=== PATIENT | female | born 1995 | race Two or more races ===

== ENCOUNTER 2017-01-28 12:04 | Emergency (ER) | payer OTHER ==
[~2017-01-28] VITALS: Ht 162.6 cm; Wt 50.1 kg
[2017-01-28] MEDS ORDERED: IBUP-1022 PO (12:26)
[2017-01-28] MEDS ORDERED: ALBU83IN INH (12:27)
[2017-01-28] MEDS ORDERED: KETOROLAC 60 MG/2 ML VIAL (J1885) IM ONE (12:45)
[2017-01-28] MEDS ORDERED: KETOROLAC 30 MG/ML VIAL (J1885) IV ONE (13:00)
[2017-01-28] MEDS ORDERED: NS 1,000 ML IV ONE (13:00)
[2017-01-28 13:12] LABS: BASO % 0.2 % (0.0-1.0); EOS # 0.1 K/mm3 (0.0-0.50); EOS % 0.8 % (0.0-3.0); LARGE UNSTAINED CELL # 0.1 K/mm3 (0.0-0.4); LARGE UNSTAINED CELL % 0.7 % (0.0-4.0); LYMPH # 1.5 K/mm3 (1.5-6.5); LYMPH % 10.3 % (24.0-44.0); MEAN CORPUSCULAR HEMOGLOBIN 29.5 pg (27.0-33.0); MEAN CORPUSCULAR HGB CONC 33.8 g/dl (32.0-36.5); MEAN CORPUSCULAR VOLUME 87.1 fl (80.0-96.0); MONO # 0.7 K/mm3 (0.0-0.8); MONO % 5.2 % (0.0-5.0); NEUTROPHILS # 11.5 K/mm3 (1.8-7.7); NEUTROPHILS % 82.9 % (36.0-66.0); PLATELET COUNT, AUTOMATED 309 k/mm3 (150-450); RED CELL DISTRIBUTION WIDTH 12.8 % (11.5-14.5); WHITE BLOOD COUNT 13.9 K/mm3 (4.0-10.0)
[2017-01-28 13:35] LABS: ALBUMIN 3.2 GM/DL (3.2-5.2); ALBUMIN/GLOBULIN RATIO 1.07 (1.00-1.93); ALKALINE PHOSPHATASE 64 U/L (45-117); ALT/SGPT 12 U/L (12-78); ANION GAP 8 MEQ/L (8-16); AST/SGOT 11 U/L (15-37); BILIRUBIN,DIRECT 0.2 MG/DL (0.0-0.2); BILIRUBIN,TOTAL 0.7 MG/DL (0.2-1.0); BLOOD UREA NITROGEN 9 MG/DL (7-18); CALCIUM LEVEL 6.8 MG/DL (8.5-10.1); CARBON DIOXIDE LEVEL 22 MEQ/L (21-32); CHLORIDE LEVEL 111 MEQ/L (98-107); CREATININE FOR GFR 0.68 MG/DL (0.55-1.02); GLOMERULAR FILTRATION RATE > 60.0 (>60); GLUCOSE, FASTING 74 MG/DL (70-105); POTASSIUM SERUM 3.1 MEQ/L (3.5-5.1); SODIUM LEVEL 141 MEQ/L (136-145); TOTAL PROTEIN 6.2 GM/DL (6.4-8.2)
--- NOTE | 2017-01-28 13:39 | REP ---
Clinical: Right flank pain and dysuria Technique: Munoz scale ultrasound using curved array transducer. Findings: The kidneys are normal in contour size and echogenicity and reniform shape without hydronephrosis, nephrolithiasis, cystic or renal mass lesion. Right kidney measures 10.3 x 4.2 x 4.2 cm . Left kidney measures 10.1 x 3.9 x 4.7 cm. Bladder is incompletely distended and grossly normal by current evaluation. Impression: Normal renal ultrasound Signed by Ulises Quinones MD 01/28/2017 01:31 P
[2017-01-28] MEDS ORDERED: cefTRIAXone SOD 1 GM in D5W MINI-BAG PLUS 50 ML IV ONE (13:45)
[2017-01-28] MEDS ORDERED: POTASSIUM CHL PWD 20 MEQ PACKET PO ONE (13:45)
[2017-01-28] MEDS ORDERED: IBUP80TA PO (14:39)
[2017-01-28] MEDS ORDERED: CIPR-249 PO (14:39)
[2017-01-28] MEDS ORDERED: CIPROFLOXACIN 500 MG TAB PO ONE (14:45)
[2017-01-28 14:47] VITALS: BP 117/66
== END 2017-01-28 14:52 | disposition home or self-care (01) ==
LOC: M ED 12:04
DX: N10 Acute pyelonephritis (principal); N39.0 Urinary tract infection, site not specified
CPT/HCPCS: 36415; 76775; 80048; 80076; 81001; 81025; 83690; 85025; 87040; 87088; 87186; 96365; 96372; 96375; 99284; J0696; J1885

== ENCOUNTER → 2017-02-26 | Outpatient (REF) | payer OTHER ==
[~2017-02-26] MED LIST: ALBU83IN INH; CIPR-249 PO; IBUP-1022 PO; IBUP80TA PO
== END ==
LOC: M SFHCLERA 10:41
PROVIDERS: ATTEND Nurse Practitioner Family
DX: R30.0 Dysuria (principal)

== ENCOUNTER → 2017-02-27 | Outpatient (REF) | payer OTHER | LOC: M SFHCLERA 16:09 | PROVIDERS: ATTEND Nurse Practitioner Family | DX: R30.0 Dysuria (principal) ==

== ENCOUNTER → 2017-05-10 | Outpatient (REF) | payer OTHER | LOC: M SFHCLERA 16:54 | PROVIDERS: ATTEND Physician Assistant | DX: R21 Rash and other nonspecific skin eruption (principal); N39.0 Urinary tract infection, site not specified ==

== ENCOUNTER 2017-06-08 13:50 | Emergency (ER) | payer OTHER ==
[~2017-06-08] VITALS: Ht 162.6 cm; Wt 52.7 kg
[2017-06-08 15:49] LABS: BASO % 0.3 % (0.0-1.0); EOS # 0.1 10^3/uL (0.0-0.50); EOS % 2.2 % (0.0-3.0); IMMATURE GRANULOCYTE % 0.3 % (0-0); LYMPH # 2.5 10^3/uL (1.5-6.5); LYMPH % 38.5 % (24.0-44.0); MEAN CORPUSCULAR HEMOGLOBIN 28.7 pg (27.0-33.0); MONO # 0.5 10^3/uL (0.0-0.8); MONO % 7.4 % (0.0-5.0); NEUTROPHILS # 3.3 10^3/uL (1.8-7.7); NEUTROPHILS % 51.3 % (36.0-66.0); PLATELET COUNT, AUTOMATED 342 10^3/uL (150-450); RED CELL DISTRIBUTION WIDTH 12.9 % (11.5-14.5); WHITE BLOOD COUNT 6.4 10^3/uL (4.0-10.0)
[2017-06-08 15:51] LABS: CONTROL LINE UCG INT CTR LINE PRESENT
[2017-06-08 15:58] LABS: ANION GAP 8 MEQ/L (8-16); BLOOD UREA NITROGEN 16 MG/DL (7-18); CALCIUM LEVEL 8.9 MG/DL (8.5-10.1); CARBON DIOXIDE LEVEL 26 MEQ/L (21-32); CHLORIDE LEVEL 103 MEQ/L (98-107); CREATININE FOR GFR 0.78 MG/DL (0.55-1.02); GLOMERULAR FILTRATION RATE > 60.0 (>60); GLUCOSE, FASTING 82 MG/DL (70-105); POTASSIUM SERUM 3.8 MEQ/L (3.5-5.1); SODIUM LEVEL 137 MEQ/L (136-145)
--- NOTE | 2017-06-08 16:38 | REP ---
PELVIC AND ENDOVAGINAL PROBE ULTRASOUND: 06/08/2017. Clinical history: Left lower quadrant pain. Possible ovarian cyst. Findings: There are no prior pertinent studies. Bladder is empty for the transabdominal images. Uterus anteverted. It measures 7.7 x 3 x 4.5 cm, better seen on the endovaginal probe. Endometrial echogenic stripe has a thickness of 3.1 mm on the EV probe exam. No fluid in the endometrial cavity or endocervical canal. No uterine mass or contour abnormality. I see no free fluid in the cul-de-sac. Right ovary is 2.9 x 2.1 x 1.8 cm. It shows Doppler resistive index 0.57, no torsion. Dominant follicle is about 8 mm. The left ovary 3 x 3.5 x 2.1 cm. It shows Doppler tracing with resistive index of 0.54. No torsion. Dominant follicle 1.5 x 1.3 cm with a few other smaller subcentimeter follicles. No fluid adjacent to either ovary. Impression: 1. Dominant follicle left ovary 1.5 x 1.3 cm without evidence of torsion, solid mass or free fluid. (Cyst defined at 2.5 cm). 2. Right ovary normal, without torsion. 3. Uterus and endometrial stripe unremarkable. No fluid in the cul-de-sac. Signed by James Mccarthy MD 06/08/2017 05:52 P
[2017-06-08 17:03] VITALS: BP 111/65
== END 2017-06-08 17:05 | disposition home or self-care (01) ==
LOC: M ED 13:50
DX: N83.02 Follicular cyst of left ovary (principal); J45.909 Unspecified asthma, uncomplicated; Z88.2 Allergy status to sulfonamides

== ENCOUNTER → 2017-09-19 | Outpatient (CLI) | payer OTHER ==
[~2017-09-19] MED LIST changes: -ALBU83IN INH; -CIPR-249 PO; -IBUP-1022 PO; -IBUP80TA PO; +PROHANCE 279.3MG/ML 5ML VIAL (A9576) As Ordered
== END ==
LOC: M RAD 12:25
DX: N97.9 Female infertility, unspecified (principal); E28.2 Polycystic ovarian syndrome
CPT/HCPCS: A9576

== ENCOUNTER → 2017-11-29 | Outpatient (CLI) | payer OTHER ==
[~2017-11-29] MED LIST changes: +ISOVUE-370 76% 100ML VIAL (Q9967) As Ordered; -PROHANCE 279.3MG/ML 5ML VIAL (A9576) As Ordered
== END ==
LOC: M RADPRO 10:58
DX: N97.9 Female infertility, unspecified (principal)
CPT/HCPCS: 58340

== ENCOUNTER 2017-12-17 22:54 | Emergency (ER) | payer OTHER ==
[2017-12-17 23:25] LABS: KETONE, URINE AUTO RFX NEGATIVE (NEGATIVE); NITRITE, URINE AUTO RFX NEGATIVE (NEGATIVE); RBC, URINE AUTO RFX 3 /HPF (0-3); SPECIFIC GRAVITY UR AUTO RFX 1.019 (1.002-1.035); SQUAM EPITHELIAL CELL UR AURFX 3 /HPF (0-6); WBC, URINE AUTO RFX 9 /HPF (0-3)
[2017-12-17 23:26] LABS: CONTROL LINE UCG INT CTR LINE PRESENT; LEUKOCYTE ESTERASE UR AUTO RFX TRACE (NEGATIVE); URINE PREG TEST POSITIVE (NEGATIVE)
[2017-12-18] MEDS: NITROFURANTOIN (MACROBID) 100 MG CAP PO (01:03)
== END 2017-12-18 01:06 | disposition home or self-care (01) ==
LOC: M ED 22:54
DX: N30.00 Acute cystitis without hematuria (principal); M54.5 Low back pain; Z87.42 Personal history of other diseases of the female genital tract; Z88.2 Allergy status to sulfonamides
CPT/HCPCS: 84703

== ENCOUNTER → 2018-01-01 | Outpatient (REF) | payer OTHER ==
[2018-01-01 13:50] LABS: APPEARANCE, URINE CLEAR (CLEAR); BACTERIA, URINE AUTO NEGATIVE (NEGATIVE); BILIRUBIN, URINE AUTO NEGATIVE (NEGATIVE); BLOOD, URINE BLOOD NEGATIVE (NEGATIVE); COLOR, URINE YELLOW (YELLOW); GLUCOSE, URINE (UA) AUTO NEGATIVE (NEGATIVE); KETONE, URINE AUTO NEGATIVE (NEGATIVE); LEUKOCYTE ESTERASE, URINE AUTO TRACE (NEGATIVE); NITRITE, URINE AUTO NEGATIVE (NEGATIVE); PROTEIN, URINE AUTO NEGATIVE (NEGATIVE); RBC, URINE AUTO 0 /HPF (0-3); SPECIFIC GRAVITY URINE AUTO 1.024 (1.002-1.035); SQUAMOUS EPITHELIAL CELL UR AU 1 /HPF (0-6); UROBILINOGEN, URINE AUTO 0.2 mg/dL (0.0-2.0); WBC, URINE AUTO 1 /HPF (0-3)
== END ==
LOC: M SMT 13:21
DX: N39.0 Urinary tract infection, site not specified (principal)

== ENCOUNTER 2018-03-29 19:20 | Emergency (ER) | payer OTHER | END 2018-03-29 20:30 | disposition home or self-care (01) | LOC: M ED 19:20 | DX: J45.901 Unspecified asthma with (acute) exacerbation (principal); Z88.1 Allergy status to other antibiotic agents; Z88.2 Allergy status to sulfonamides | CPT/HCPCS: 99284 ==

== ENCOUNTER 2018-06-01 17:03 | Outpatient (CLI) | payer OTHER ==
[2018-06-01] MEDS: LR 1,000 ML IV ×2 (17:44→18:46)
[2018-06-01 18:28] LABS: HEMATOCRIT 35.7 % (36.0-47.0); MEAN CORPUSCULAR HEMOGLOBIN 29.4 pg (27.0-33.0); MEAN CORPUSCULAR HGB CONC 33.6 g/dl (32.0-36.5); MEAN CORPUSCULAR VOLUME 87.5 fl (80.0-96.0); PLATELET COUNT, AUTOMATED 269 10^3/uL (150-450); RED BLOOD COUNT 4.08 10^6/uL (4.00-5.40); RED CELL DISTRIBUTION WIDTH 12.9 % (11.5-14.5); WHITE BLOOD COUNT 11.9 10^3/uL (4.0-10.0)
[2018-06-01] MEDS: AMPICILLIN SOD/SULBACTAM SOD 3 GM in D5W MINI-BAG PLUS 100 ML IV (18:46)
== END 2018-06-01 20:35 | disposition home or self-care (01) ==
LOC: M LDO 17:03
DX: O26.893 Other specified pregnancy related conditions, third trimester (principal); M54.5 Low back pain; O99.513 Diseases of the respiratory system complicating pregnancy, third trimester; J45.909 Unspecified asthma, uncomplicated; O99.89 Other specified diseases and conditions complicating pregnancy, childbirth and the puerperium; Z87.440 Personal history of urinary (tract) infections; Z88.1 Allergy status to other antibiotic agents; Z3A.30 30 weeks gestation of pregnancy
CPT/HCPCS: 59025

== ENCOUNTER → 2018-06-07 | Outpatient (CLI) | payer OTHER ==
[2018-06-12 08:15] LABS: Zika Virus NAA Urine Negative (Negative)
== END ==
LOC: M LAB 13:16
DX: Z34.03 Encounter for supervision of normal first pregnancy, third trimester (principal)
CPT/HCPCS: 36415

== ENCOUNTER 2018-06-12 17:46 | Inpatient (IN) | payer OTHER ==
[2018-06-12] MEDS: LR 1,000 ML IV (18:30)
[2018-06-12 18:56] LABS: HEMATOCRIT 34.9 % (36.0-47.0); HEMOGLOBIN 11.7 g/dl (12.0-15.5); MEAN CORPUSCULAR HEMOGLOBIN 29.3 pg (27.0-33.0); MEAN CORPUSCULAR HGB CONC 33.5 g/dl (32.0-36.5); MEAN CORPUSCULAR VOLUME 87.3 fl (80.0-96.0); PLATELET COUNT, AUTOMATED 270 10^3/uL (150-450); RED CELL DISTRIBUTION WIDTH 12.9 % (11.5-14.5); WHITE BLOOD COUNT 9.5 10^3/uL (4.0-10.0)
[2018-06-12 19:18] LABS: INR 0.98; PROTHROMBIN TIME 13.1 SECONDS (12.1-14.4)
[2018-06-12 19:19] LABS: FIBRINOGEN 393 MG/DL (221-452); PARTIAL THROMBOPLASTIN TIME 28.5 SECONDS (25.4-37.6)
[2018-06-12] MEDS ORDERED: ACETAMINOPHEN TAB 650MG DOSE (2X325MG) PO (21:30)
[2018-06-12] MEDS ORDERED: diphenhydrAMINE 25 MG CAP PO (21:30)
[2018-06-12] MEDS ORDERED: CALCIUM GLUCONATE 1,000 MG in D5W MINI-BAG PLUS 100 ML IV (21:30)
[2018-06-12] MEDS: MAG Sulf (L&D) 4 GM/100 ML 4 GM in APPROPRIATE DILUENT 1 EA IV (21:52)
[2018-06-12] MEDS: BETAMETHASONE SOLUSPAN 6MG/ML INJ 5ML (J0702) IM (21:52)
[2018-06-12] MEDS: PENICILLIN G POTASSIUM IV 5 MU in D5W MINI-BAG PLUS 100 ML IV (22:17)
[2018-06-12] MEDS: MAG Sulf (OBGYN) 20GM/500ML 20,000 MG in APPROPRIATE DILUENT 1 EA IV (22:18)
[2018-06-12] MEDS: FLUCONAZOLE 50MG TABLET PO (22:40)
[2018-06-12 23:31] LABS: CHLAMYDIA DNA AMPLIFICATION NEGATIVE (NEGATIVE); GC DNA AMPLIFICATION NEGATIVE (NEGATIVE)
[2018-06-13] MEDS: PENICILLIN G POTASSIUM IV 2.5 MU in APPROPRIATE DILUENT 1 EA IV ×6 (02:35→22:32)
[2018-06-13] MEDS: MAG Sulf (OBGYN) 20GM/500ML 20,000 MG in APPROPRIATE DILUENT 1 EA IV (07:26)
[2018-06-13] MEDS: LR 1,000 ML IV ×2 (07:46→18:07)
[2018-06-13] MEDS: PRENATAL VITAMINS CHEWABLE TABLET PO (08:03)
[2018-06-13] MEDS ORDERED: AZITHROMYCIN 250 MG TAB PO (16:30)
[2018-06-13] MEDS: ONDANSETRON 4MG/2ML VIAL (J2405) IV (17:56)
[2018-06-13] MEDS: AZITHROMYCIN 250 MG TAB PO (20:27)
[2018-06-13] MEDS: BETAMETHASONE SOLUSPAN 6MG/ML INJ 5ML (J0702) IM (22:03)
[2018-06-14] MEDS: PENICILLIN G POTASSIUM IV 2.5 MU in APPROPRIATE DILUENT 1 EA IV ×2 (02:53→06:35)
[2018-06-14] MEDS: NIFEdipine 10 MG CAP PO ×3 (07:56→23:42)
[2018-06-14] MEDS: NITROFURANTOIN (MACROBID) 100 MG CAP PO ×2 (08:59→21:09)
[2018-06-14] MEDS: LR 1,000 ML IV ×2 (08:59→16:34)
[2018-06-14] MEDS: PRENATAL VITAMINS CHEWABLE TABLET PO (08:59)
[2018-06-15] MEDS: LR 1,000 ML IV ×3 (00:15→15:07)
[2018-06-15] MEDS: PRENATAL VITAMINS CHEWABLE TABLET PO (08:25)
[2018-06-15] MEDS: NITROFURANTOIN (MACROBID) 100 MG CAP PO ×2 (08:25→21:03)
[2018-06-15] MEDS: NIFEdipine 10 MG CAP PO ×2 (08:25→16:42)
[2018-06-15 09:31] LABS: FIBRINOGEN 363 MG/DL (221-452)
[2018-06-15] MEDS: [UNRECOGNIZED DRUG - OTHER] PV (16:57)
[2018-06-16] MEDS: LR 1,000 ML IV (00:15)
[2018-06-16] MEDS: NIFEdipine 10 MG CAP PO ×3 (00:24→16:07)
[2018-06-16] MEDS: NITROFURANTOIN (MACROBID) 100 MG CAP PO (08:41)
[2018-06-16] MEDS: PRENATAL VITAMINS CHEWABLE TABLET PO (08:41)
[2018-06-16] MEDS ORDERED: [UNRECOGNIZED DRUG - OTHER] PV (21:00)
== END 2018-06-16 19:50 | disposition other institution (70) | DRG 832 ==
LOC: M LDO 17:46 → M LDI 21:53
PROVIDERS: Obstetrics & Gynecology
DX: O60.03 Preterm labor without delivery, third trimester (principal); O23.43 Unspecified infection of urinary tract in pregnancy, third trimester; Z3A.29 29 weeks gestation of pregnancy; O36.8130 Decreased fetal movements, third trimester, not applicable or unspecified; B96.20 Unspecified Escherichia coli [E. coli] as the cause of diseases classified elsewhere; O36.8330 Maternal care for abnormalities of the fetal heart rate or rhythm, third trimester, not applicable or unspecified

== ENCOUNTER → 2018-06-28 | Outpatient (CLI) | payer OTHER | LOC: M RAD 11:36 | DX: O36.5930 Maternal care for other known or suspected poor fetal growth, third trimester, not applicable or unspecified (principal) | CPT/HCPCS: 76815 ==

== ENCOUNTER → 2018-07-05 | Outpatient (CLI) | payer OTHER | LOC: M RAD 11:37 | DX: O36.5930 Maternal care for other known or suspected poor fetal growth, third trimester, not applicable or unspecified (principal); Z3A.31 31 weeks gestation of pregnancy | CPT/HCPCS: 76815 ==

== ENCOUNTER → 2018-07-12 | Outpatient (CLI) | payer OTHER | LOC: M RAD 11:21 | DX: Z36.89 Encounter for other specified antenatal screening (principal); Z3A.33 33 weeks gestation of pregnancy | CPT/HCPCS: 76815 ==

== ENCOUNTER 2018-07-28 09:32 | Inpatient (IN) | payer OTHER ==
[2018-07-28] VITALS (7 sets, daily range): BP systolic 103–126; BP diastolic 62–85
[~2018-07-28] VITALS: Ht 162.6 cm; Wt 61.6 kg
[~2018-07-28 09:32] MED LIST changes: +ALBU83IN INH; +CEPH500C PO; +CIPR-249 PO; +IBUP-1022 PO; +IBUP80TA PO; -ISOVUE-370 76% 100ML VIAL (Q9967) As Ordered; +MACR100C43 PO; +PRENTAB40 PO
[2018-07-28] MEDS ORDERED: PENICILLIN G POTASSIUM IV 5 MU in D5W MINI-BAG PLUS 100 ML IV STA (10:16)
[2018-07-28] MEDS ORDERED: LACTATED RINGER'S 1000 ML IV STA (10:16)
--- NOTE | 2018-07-28 10:31 | HPEPDOC ---
Obstetrical History & Physical General Date of Admission Jul 28, 2018 at 10:11 History of Present Illness 23 yo at 36+1 weeks gestation by LMP of 17Nov2017 c/w 8+2 week US on 2017 presented to L&D with the complaint of vaginal bleeding and pelvic pressure. She reports having some spotting yesterday, which turned into bright red bleeding today. She denies any leakage of fluid. She endorses excellent movement. Chief Complaint: Vaginal Bleeding Information Provided By: Patient Age: 23 : 1 Term: 0 Pre-term: 0 Abortions: 0 Livin Care Care: Good Care Dating Final EDC: Aug 24, 2018 Final EDC for Daily Update: Aug 24, 2018 Final EDC by: LMP LMP: Nov 17, 2017 Antepartum Course Diagnos(e)s IUGR --> 3rd percentile for growth on US on 19Jul2018. Umbilical cord doppler studies have been normal as of 26Jul2018 Travel to [place] earlier in ---> Zika testing negative Asthma ---> rescue inhaler PRN Past Medical History Past Obstetrical History : Past Obstetrical History: Primgravida [employer] History: No pertinent history Past Medical History Medical History Asthma --> PRN albuterol use Surgical History: [place] teeth Family History Significant Family History: No pertinent family hx Social History Marital Status: Family situation: Spouse/partner home Psychosocial History: No pertinent psych hx * Smoker: non-smoker Alcohol: Denies Drugs: denies Imunizations Tdap status: current Influenza Status: current Allergies Coded Allergies: Sulfamethoxazole w/Trimethoprim (Verified Allergy, Intermediate, HIVES, 06/12/18) Medications No Active Prescriptions or Reported Meds Physical Examination Physical Examination Chaperoned by L&D RN GENERAL: Alert and oriented times three. ABDOMEN: Gravid and non-tender to touch. FETUS: Is vertex (VTX) by sterile vaginal examination (SVE) EXTREMITIES: No edema. No clonus. Pelvic exam: Normal external genitalia. Speculum inserted into the vagina and the cervix was visualized. Cervix dilated. No active bleeding. GBS swab performed. Bedside TAUS: SIUP in cephalic presentation Vital Signs/I&O Vital Signs Date Time Temp Pulse Resp B/P (MAP) Pulse Ox O2 Delivery O2 Flow Rate FiO2 07/28/18 09:49 97.7 63 18 126/77 (93) Laboratory Data Urine Culture: No Growth Pertinent Laboratoy Data Blood Type: A+ RBC Antibody Screen: Negative HIV: Negative Hepatitis B: Negative Hepatitis C: Unknown Rapid Plasma Reagin: Nonreactive Rubella: Immune Varicella: Immune Chlamydia/Gonorrhea: Negative Group B Streptococcus: Negative (GBS negative >6 weeks ago, so now officially unknown) Quad Screen Test: Negative Cystic Fibrosis: Negative Glucose Tolerance Test: 85 Anatomy Ultrasound Placenta Location: Anterior Normal Anatomy: Yes Placenta Previa: No Other Ultrasounds Growth scan on [id number] --> 3rd percentile for growth. Normal BRANT. Normal doppler studies [id number] --> Normal umbilical cord doppler studies with S/D 2.65. No absent or reversed end diastolic flow Steroid Therapy Steroid Therapy: Yes (Done approximately 6 weeks ago) Vaginal Examination Dilation: 2cm Effacement: 80% Station: -2 Cervical Consistency: Soft Cervical Position: Middle Presentation: Cephalic presentation Position: Vertex (occiput) Assessment Heart Rate (FHR): 130 Variability: Moderate Accelerations: Positive Decelerations: None Tocometer Contractions: Yes Frequency: regular Strength: palpated as moderate Assessment/Plan Assessment 23 yo at 36+1 weeks gestation presented in labor. Plan Admit for expectant management of labor at this gestational age. Apply IV fluids. GBS negative >6 weeks ago, so patient is now technically GBS unknown. Repeat swab performed on admission. Will start PCN for prophylaxis due to GBS UNK and premature gestational age. Urine culture ordered. Received one course of BTMZ >6 weeks ago. Will order a rescue course with this admission. Continous EFM. Patient may have epidural. All patient questions answered. DO TITO Scott CHRISTOPHER J. DO Jul 28, 2018 10:31
[2018-07-28 10:45] LABS: BASO % 0.2 % (0.0-1.0); EOS # 0.1 10^3/uL (0.0-0.50); HEMATOCRIT 37.7 % (36.0-47.0); HEMOGLOBIN 12.6 g/dl (12.0-15.5); LYMPH # 2.1 10^3/uL (1.5-6.5); LYMPH % 16.5 % (24.0-44.0); MEAN CORPUSCULAR HEMOGLOBIN 28.9 pg (27.0-33.0); MEAN CORPUSCULAR HGB CONC 33.4 g/dl (32.0-36.5); MEAN CORPUSCULAR VOLUME 86.5 fl (80.0-96.0); MONO # 0.7 10^3/uL (0.0-0.8); MONO % 5.6 % (0.0-5.0); NEUTROPHILS # 9.5 10^3/uL (1.8-7.7); NEUTROPHILS % 76.3 % (36.0-66.0); PLATELET COUNT, AUTOMATED 261 10^3/uL (150-450); RED BLOOD COUNT 4.36 10^6/uL (4.00-5.40); WHITE BLOOD COUNT 12.4 10^3/uL (4.0-10.0)
[2018-07-28] MEDS: BETAMETHASONE SOLUSPAN 6MG/ML INJ 5ML (J0702) IM SCH (10:48)
[2018-07-28] MEDS: LR 1,000 ML IV SCH ×2 (10:48→12:56)
[2018-07-28 12:55] LABS: APPEARANCE, URINE HAZY (CLEAR); BACTERIA, URINE AUTO NEGATIVE (NEGATIVE); BILIRUBIN, URINE AUTO NEGATIVE (NEGATIVE); BLOOD, URINE BLOOD 3+ (NEGATIVE); COLOR, URINE STRAW (YELLOW); GLUCOSE, URINE (UA) AUTO NEGATIVE (NEGATIVE); KETONE, URINE AUTO NEGATIVE (NEGATIVE); LEUKOCYTE ESTERASE, URINE AUTO 3+ (NEGATIVE); MUCUS, URINE SMALL (NEGATIVE); NITRITE, URINE AUTO NEGATIVE (NEGATIVE); PROTEIN, URINE AUTO NEGATIVE (NEGATIVE); RBC, URINE AUTO 3 /HPF (0-3); SPECIFIC GRAVITY URINE AUTO 1.013 (1.002-1.035); SQUAMOUS EPITHELIAL CELL UR AU 4 /HPF (0-6); UROBILINOGEN, URINE AUTO 0.2 mg/dL (0.0-2.0); WBC, URINE AUTO 10 /HPF (0-3)
[2018-07-28] MEDS: PENICILLIN G POTASSIUM IV 2.5 MU in APPROPRIATE DILUENT 1 EA IV SCH ×3 (15:26→23:48)
--- NOTE | 2018-07-28 19:44 | IPNPDOC ---
Text Note Date of Service The patient was seen on 07/28/18. NOTE Contractions have spaced and bleeding has not persisted. FHR BL 120, moderate variability, +accels, no decels, Cat I tracing. Have allowed regular diet this evening. Will continue to observe overnight. DO Malcolm VS,Ari, I+O VS, Ari, I+O Laboratory Tests 07/28/18 10:33 Red Blood Count 4.36, Mean Corpuscular Volume 86.5, Mean Corpuscular Hemoglobin 28.9, Mean Corpuscular Hemoglobin Concent 33.4, Red Cell Distribution Width 13.5, Neutrophils (%) (Auto) 76.3 H, Lymphocytes (%) (Auto) 16.5 L, Monocytes (%) (Auto) 5.6 H, Eosinophils (%) (Auto) 1.0, Basophils (%) (Auto) 0.2, Neutrophils # (Auto) 9.5 H, Lymphocytes # (Auto) 2.1, Monocytes # (Auto) 0.7, Eosinophils # (Auto) 0.1, Basophils # (Auto) 0.0 Vital Signs Date Time Temp Pulse Resp B/P (MAP) Pulse Ox O2 Delivery O2 Flow Rate FiO2 07/28/18 16:00 98.4 71 18 120/85 (97) KEVEN FRANCIS DO Jul 28, 2018 19:44
[2018-07-29] VITALS (40 sets, daily range): BP systolic 95–152; BP diastolic 56–94
[2018-07-29] MEDS: LR 1,000 ML IV SCH ×4 (04:13→21:16)
[2018-07-29] MEDS: PENICILLIN G POTASSIUM IV 2.5 MU in APPROPRIATE DILUENT 1 EA IV SCH ×5 (04:13→20:38)
--- NOTE | 2018-07-29 06:47 | IPNPDOC ---
Text Note Date of Service The patient was seen on 07/29/18. NOTE Patient seen this morning. She reports continued irregular contractions that take her breath away and worsening pelvic pressure. However she denies any further bleeding. Also denies any leakage of fluid. FHR: BL 120, moderate variability, +accels, no decels, Cat I tracing 2nd dose of BTMZ due at ~1045. Continue PCN for now. Continue to observe closely. All patient questions answered. Keven Fowler DO VS,Ari, I+O VS, Ari, I+O Laboratory Tests 07/28/18 10:33 Red Blood Count 4.36, Mean Corpuscular Volume 86.5, Mean Corpuscular Hemoglobin 28.9, Mean Corpuscular Hemoglobin Concent 33.4, Red Cell Distribution Width 13.5, Neutrophils (%) (Auto) 76.3 H, Lymphocytes (%) (Auto) 16.5 L, Monocytes (%) (Auto) 5.6 H, Eosinophils (%) (Auto) 1.0, Basophils (%) (Auto) 0.2, Neutrophils # (Auto) 9.5 H, Lymphocytes # (Auto) 2.1, Monocytes # (Auto) 0.7, Eosinophils # (Auto) 0.1, Basophils # (Auto) 0.0 Vital Signs Date Time Temp Pulse Resp B/P (MAP) Pulse Ox O2 Delivery O2 Flow Rate FiO2 07/29/18 04:30 97.9 18 18 107/72 (84) I&O- Last 24 Hours up to 6 AM 07/29/18 06:00 Intake Total 3196 ml Output Total 850 ml Balance 2346 ml KEVEN FOWLER DO Jul 29, 2018 06:47
[2018-07-29] MEDS: BETAMETHASONE SOLUSPAN 6MG/ML INJ 5ML (J0702) IM SCH (10:30)
--- NOTE | 2018-07-29 13:55 | IPNPDOC ---
Text Note Date of Service The patient was seen on 07/29/18. NOTE SBAR from Dr Fowler earlier this AM. Pt well known to me, I managed her 5-day admission 1-2 months ago with intermittent NRFHT, was sent to [place] and admitted there for almost a week as well. Known severe IUGR at 36+2 with bleeding and irreg ctx's and cx yesterday 2 cm dilation. Second dose steroids now complete today at ~noon. GBS unk, on PCN. On SUN, had a normal scan with normal dopplers. Today a few hours ago was 4/75/-1. Just now had a 5 min ctx and a prolonged decel following, lasting 4-5 min, pos accels and mod jeni prior and after. FHT review of admission with a late decel noted at 0100 today. O/W all Cat 1. In the setting of 2 decels at 36+2 with known severe IUGR and intermittent decelerations, will plan on delivery, active mgmt. May already be in labor, as has had change from 2 to 4 cm since yesterday. Recheck later this afternoon. Sessions MD YEE,Ari, I+O Ari YEE, I+O Vital Signs Date Time Temp Pulse Resp B/P (MAP) Pulse Ox O2 Delivery O2 Flow Rate FiO2 07/29/18 11:41 98.2 73 18 103/65 (78) I&O- Last 24 Hours up to 6 AM 07/29/18 05:59 Intake Total 3196 ml Output Total 850 ml Balance 2346 ml JAMES MORTENSEN MD Jul 29, 2018 13:55
--- NOTE | 2018-07-29 17:52 | IPNPDOC ---
Text Note Date of Service The patient was seen on 07/29/18. NOTE FHT Cat 1 mostly, 3 decels therefore Cat 2 since 1300. Cx 4-5/80/-2 Making slow cervical change, will not intervene with amniotomy/pitocin, etc until at least 6-7 cm Sessions VS,Ari, I+O VSAri, I+O Vital Signs Date Time Temp Pulse Resp B/P (MAP) Pulse Ox O2 Delivery O2 Flow Rate FiO2 07/29/18 16:40 64 16 105/62 (76) 07/29/18 15:05 98.4 I&O- Last 24 Hours up to 6 AM 07/29/18 06:00 Intake Total 3196 ml Output Total 850 ml Balance 2346 ml SESSIONS,JAMES Chan MD Jul 29, 2018 17:52
[2018-07-29] MEDS ORDERED: FENTANYL 2MCG/ML ROPIVACAINE 0.2% IN 0.9% NACL 100ML IVBAG As Ordered ONE (21:11)
[2018-07-29] MEDS ORDERED: LACTATED RINGER'S 1000 ML IV PRN (22:45)
[2018-07-29] MEDS ORDERED: NALOXONE INJ 0.4 MG/1 ML VIAL (J2310) IV PRN (22:45)
[2018-07-29] MEDS ORDERED: EPIDURAL/PCA KEYS XX PRN (22:45)
[2018-07-29] MEDS ORDERED: FENTANYL/ROPIVACAINE/NACL BAG 100 ML EPIDURAL SCH (22:45)
[2018-07-29] MEDS ORDERED: ePHEDrine SULFATE 25 MG/5 ML(5MG/ML) SYRINGE IV PRN (22:45)
[2018-07-29] MEDS ORDERED: ONDANSETRON 4MG/2ML VIAL (J2405) IV PRN (22:45)
[2018-07-29] MEDS ORDERED: diphenhydrAMINE INJ 50MG/ML VIAL (J1200) IV PRN (22:45)
[2018-07-29] MEDS ORDERED: REFRIGERATOR IV KEYS XX PRN (22:45)
[2018-07-29] MEDS ORDERED: EPIDURAL COMMENT XX SCH (22:45)
[2018-07-29] MEDS ORDERED: OXYTOCIN 30 UNITS IN 0.9% NaCl 500ML IV BAG (J2590) As Ordered ONE (23:16)
--- NOTE | 2018-07-29 23:30 | IPNPDOC ---
Text Note Date of Service The patient was seen on 07/29/18. NOTE Now s/p epidural for obvious progressing labor. Some lates with decreasing variability noted after, checked by RN and ~9 cm. Now /0/AROM with clr fluid Watching tracing closely, recheck in 1-2 hrs, sooner prn. Sessions VS,Ari, I+O VS, Ari I+O Vital Signs Date Time Temp Pulse Resp B/P (MAP) Pulse Ox O2 Delivery O2 Flow Rate FiO2 07/29/18 20:42 56 16 116/81 (93) 07/29/18 19:22 98.4 I&O- Last 24 Hours up to 6 AM 07/29/18 05:59 Intake Total 3196 ml Output Total 850 ml Balance 2346 ml FESTUS,JAMES Chan MD Jul 29, 2018 23:29
[2018-07-30] VITALS (10 sets, daily range): BP systolic 103–137; BP diastolic 57–82
[2018-07-30] MEDS ORDERED: RHOGAM 300 MCG (1500 IU) INJ (J2790) IM SCH (01:00)
[2018-07-30] MEDS ORDERED: DIBUCAINE 1% OINTMENT 30GM TOP PRN (01:00)
[2018-07-30] MEDS ORDERED: ACETAMINOPHEN TAB 650MG DOSE (2X325MG) PO PRN (01:00)
[2018-07-30] MEDS ORDERED: OXYTOCIN DRIP 30 UNITS in APPROPRIATE DILUENT 1 EA IV SCH (01:00)
[2018-07-30] MEDS ORDERED: MEASLES,MUMPS,RUBELLA VACCINE INJ (MMR-II) (90707) SC SCH (01:00)
[2018-07-30] MEDS ORDERED: METOCLOPRAMIDE INJ 10MG/2ML VIAL (J2765) IV PRN (01:00)
--- NOTE | 2018-07-30 01:08 | DNPDOC ---
[facility] Delivery Note Delivery Note DATE OF DELIVERY: [id number] PREDELIVERY DIAGNOSIS: 36 3/7 weeks' gestation and labor. POST DELIVERY DIAGNOSIS: Delivered. PROCEDURE: Spontaneous vaginal delivery HEEL SEWER: Dr. Mortensen ANESTHESIA: epidural ESTIMATED BLOOD LOSS: 200 mL. FINDINGS: 4 pound 3 ounce male , Score 8/9, nuchal cord times 2, tight and not reduced until after delivery DELIVERY SUMMARY: Called to room, excellent effort. No delay of the vtx or ant/post shoulders. Double nuchal cord too tight to be reduced and no time to surgically reduce. Slipped the cord over the shoulders along the body X2 once delivered. Vigorous, to abdomen. Cord C/C by FOB. Cord blood. Placenta intact, fundus firm, pit going 999. Perineum intact. Right labia split and repaired with 4-0 vicryl. Good cosmesis/hemostasis. Sessions MD MORTENSEN,JAMES Chan MD Jul 30, 2018 01:08
--- NOTE | 2018-07-30 07:02 | IPNPDOC ---
Text Note Date of Service The patient was seen on 07/30/18. NOTE PPD1 States feeling well, pain controlled with prescribed meds. Baby bonding and feeding well. No heavy VB. Lochia slowing. Ambulating and voiding well. Tolerating PO without issues. VSSAF NAD A&O RRR CTAB LE no C/C/E Ut at U-2, firm a/p: Doing well. Cont routine care. D/C likely tomorrow. Sessions VSAri, I+O VSAri I+O Vital Signs Date Time Temp Pulse Resp B/P (MAP) Pulse Ox O2 Delivery O2 Flow Rate FiO2 07/30/18 06:11 98.5 99 18 114/58 (76) I&O- Last 24 Hours up to 6 AM 07/30/18 06:00 Intake Total 3651 ml Output Total 4050 ml Balance -399 ml JAMES MORTENSEN MD Jul 30, 2018 07:02
[2018-07-30] MEDS: DOCUSATE SODIUM 100 MG CAP PO SCH ×2 (07:47→20:48)
[2018-07-30] MEDS: PRENATAL VITAMINS CHEWABLE TABLET PO SCH (07:47)
[2018-07-30] MEDS: IBUPROFEN 800 MG TAB PO PRN ×2 (07:47→17:08)
[2018-07-31] MEDS: IBUPROFEN 800 MG TAB PO PRN (03:15)
[2018-07-31 05:56] VITALS: BP 120/75
--- NOTE | 2018-07-31 07:16 | DS.PDOC ---
Discharge Summary General Date of Admission Jul 28, 2018 at 10:11 Date of Discharge 31Jul2018 Discharge Summary HOSPITAL COURSE: Ms. Enriquez is a 23 yo G1 now P1 who underwent an uncomplicated just after midnight on 30Jul2018 after being admitted for labor in the setting of IUGR. Her course has been uncomplicated. On her day of discharge she met all appropriate discharge criteria. She was ambulating, voiding, tolerating a regular diet, had minimal lochia, and had minimal pain. DISCHARGE MEDICATIONS: Please see below. ALLERGIES: Please see below. PHYSICAL EXAMINATION ON DISCHARGE: VITAL SIGNS: Please see below. GENERAL: AAOX3, pleasant and conversant ABDOMINAL EXAMINATION: Fundus firm at U-2. No fundal tenderness. EXTREMITIES: No edema PSYCHIATRIC EXAMINATION: Affect appropriate LABORATORY DATA: Please see below. ACTIVITY: Pelvic rest for 6 weeks DIET: Regular diet DISCHARGE PLAN: Discharge to boarder status today DISPOSITION: Discharge to boarder status on 31Jul2018. DISCHARGE INSTRUCTIONS: 1. Pelvic rest for 6 weeks. ITEMS TO FOLLOWUP ON ON OUTPATIENT: 1. Follow up visit in 6-8 weeks. DISCHARGE CONDITION: Stable. TIME SPENT ON DISCHARGE: Greater than 20 minutes. Keven Fowler DO Vital Signs/I&Os Vital Signs Date Time Temp Pulse Resp B/P (MAP) Pulse Ox O2 Delivery O2 Flow Rate FiO2 07/31/18 05:56 98.2 58 18 120/75 (90) Microbiology Microbiology 07/28/18 Group B Streptococcus Screen (ALANNAH) - Final, Complete 07/28/18 Urine Culture - Final, Complete Discharge Medications No Active Prescriptions or Reported Meds Allergies Coded Allergies: Sulfamethoxazole w/Trimethoprim (Verified Allergy, Intermediate, HIVES, 06/12/18) KEVEN FOWLER DO Jul 31, 2018 07:16
[2018-07-31] MEDS: DOCUSATE SODIUM 100 MG CAP PO SCH (07:41)
[2018-07-31] MEDS: PRENATAL VITAMINS CHEWABLE TABLET PO SCH (07:41)
[2018-07-31] MEDS ORDERED: IBUP-1114 PO (08:32)
[2018-07-31] MEDS ORDERED: COLA100C5 PO (08:32)
[2018-07-31] MEDS ORDERED: PRENTAB9 PO (08:32)
[2018-07-31] MEDS ORDERED: MAPA500T17 PO (08:32)
== END 2018-07-31 12:55 | disposition home or self-care (01) | DRG 807 ==
LOC: M LDO 09:32 → M LDI 10:11 → M OBS 07-30 03:39
PROVIDERS: ADMIT Obstetrics & Gynecology; ATTEND Obstetrics & Gynecology
PROC: 10E0XZZ Delivery of Products of Conception, External Approach (ICD-10-PCS; principal; 2018-07-30)
PROC: 0HQ9XZZ Repair Perineum Skin, External Approach (ICD-10-PCS; 2018-07-30)
DX: O60.14X0 Preterm labor third trimester with preterm delivery third trimester, not applicable or unspecified (principal); Z37.0 Single live birth; Z3A.36 36 weeks gestation of pregnancy; Z88.2 Allergy status to sulfonamides; O69.89X0 Labor and delivery complicated by other cord complications, not applicable or unspecified; O70.0 First degree perineal laceration during delivery

== ENCOUNTER → 2018-10-05 | Outpatient (REF) | payer OTHER ==
[~2018-10-05] MED LIST changes: +COLA100C5 PO; +IBUP-1114 PO; +MAPA500T2 PO; +PRENTAB9 PO
[2018-10-05 22:28] LABS: INFLUENZA A AMPLIFICATION NEGATIVE (NEGATIVE); INFLUENZA B AMPLIFICATION NEGATIVE (NEGATIVE)
== END ==
LOC: M LAB REF 14:50
PROVIDERS: ATTEND Physician Assistant
DX: J11.1 Influenza due to unidentified influenza virus with other respiratory manifestations (principal)

== ENCOUNTER 2019-01-17 22:19 | Emergency (ER) | payer OTHER ==
[~2019-01-17] VITALS: Ht 162.6 cm; Wt 58.2 kg
[2019-01-17 22:19] VITALS: BP 128/78
== END 2019-01-18 00:50 | disposition left against medical advice (07) ==
LOC: M ED 22:19
DX: Z53.29 Procedure and treatment not carried out because of patient's decision for other reasons (principal)

== ENCOUNTER 2019-09-01 10:52 | Emergency (ER) | payer OTHER ==
[~2019-09-01] VITALS: Ht 162.6 cm; Wt 57.1 kg
[2019-09-01] MEDS ORDERED: PREN27TA3 (11:00)
[2019-09-01 12:01] LABS: BASO % 0.3 % (0.0-1.0); EOS # 0.2 10^3/uL (0.0-0.5); EOS % 2.5 % (0.0-3.0); HEMATOCRIT 38.1 % (36.0-47.0); HEMOGLOBIN 12.5 g/dl (12.0-15.5); LYMPH # 2.4 10^3/uL (1.5-5.0); LYMPH % 35.8 % (24.0-44.0); MEAN CORPUSCULAR HEMOGLOBIN 27.7 pg (27.0-33.0); MEAN CORPUSCULAR HGB CONC 32.8 g/dl (32.0-36.5); MEAN CORPUSCULAR VOLUME 84.3 fl (80.0-96.0); MONO # 0.6 10^3/uL (0.0-0.8); MONO % 8.1 % (0.0-5.0); NEUTROPHILS # 3.6 10^3/uL (1.5-8.5); NEUTROPHILS % 53.2 % (36.0-66.0); PLATELET COUNT, AUTOMATED 367 10^3/uL (150-450); RED BLOOD COUNT 4.52 10^6/uL (4.00-5.40); WHITE BLOOD COUNT 6.8 10^3/uL (4.0-10.0)
[2019-09-01 12:32] LABS: BLOOD UREA NITROGEN 9 MG/DL (7-18); CALCIUM LEVEL 8.7 MG/DL (8.5-10.1); CARBON DIOXIDE LEVEL 26 MEQ/L (21-32); CHLORIDE LEVEL 106 MEQ/L (98-107); CREATININE FOR GFR 0.71 MG/DL (0.55-1.30); GLOMERULAR FILTRATION RATE > 60.0 (>60); GLUCOSE, FASTING 85 MG/DL (70-100); HCG, SERUM QUANTITATIVE 44079 MIU/ML; POTASSIUM SERUM 3.9 MEQ/L (3.5-5.1); SODIUM LEVEL 139 MEQ/L (136-145)
[2019-09-01] MEDS ORDERED: METOCLOPRAMIDE 10 MG TAB PO ONE (13:15)
--- NOTE | 2019-09-01 14:25 | REP ---
Emergency first trimester obstetric sonography: History: Pelvic pain and vaginal spotting. Findings: Transabdominal and transvaginal scanning are performed. A single living intrauterine gestation is seen. The embryonic pole measures 7 mm in crown-rump length. This corresponds with a gestational age estimate of 6 weeks 3 days. heart rate is recorded at 116 beats per minute. There is a small subchorionic fluid collection visible consistent with subchorionic hemorrhage. This measures 1.0 x 0.8 x 0.9 cm. There is a 1.7 cm cystic area in the left ovary which may be corpus luteum. Impression: Viable single intrauterine gestation at 6 weeks 3 days by today's crown-rump length. JIA by today's sonography April 23, 2020. There is a 1 cm subchorionic hemorrhage. Electronically Signed by Sea Zamorano MD 09/01/2019 03:21 P
[2019-09-01] MEDS ORDERED: KEFL500C17 PO (14:28)
[2019-09-01] MEDS ORDERED: REGL10TA6 PO (14:28)
[2019-09-01 14:42] VITALS: BP 108/64
== END 2019-09-01 14:42 | disposition home or self-care (01) ==
LOC: M ED 10:52
DX: O20.8 Other hemorrhage in early pregnancy (principal); O23.41 Unspecified infection of urinary tract in pregnancy, first trimester; Z88.1 Allergy status to other antibiotic agents; Z88.2 Allergy status to sulfonamides; Z3A.01 Less than 8 weeks gestation of pregnancy

== ENCOUNTER 2019-09-06 10:28 | Emergency (ER) | payer OTHER ==
[~2019-09-06] VITALS: Ht 162.6 cm; Wt 55.9 kg
[~2019-09-06 10:28] MED LIST changes: +KEFL500C17 PO; +PREN27TA3; +REGL10TA6 PO
[2019-09-06 11:13] LABS: BASO % 0.1 % (0.0-1.0); EOS % 0.4 % (0.0-3.0); HEMATOCRIT 39.2 % (36.0-47.0); HEMOGLOBIN 12.5 g/dl (12.0-15.5); LYMPH # 1.6 10^3/uL (1.5-5.0); LYMPH % 15.2 % (24.0-44.0); MEAN CORPUSCULAR HEMOGLOBIN 27.1 pg (27.0-33.0); MEAN CORPUSCULAR HGB CONC 31.9 g/dl (32.0-36.5); MEAN CORPUSCULAR VOLUME 84.8 fl (80.0-96.0); MONO # 0.7 10^3/uL (0.0-0.8); MONO % 7.2 % (0.0-5.0); NEUTROPHILS # 7.9 10^3/uL (1.5-8.5); NEUTROPHILS % 76.7 % (36.0-66.0); PLATELET COUNT, AUTOMATED 359 10^3/uL (150-450); RED BLOOD COUNT 4.62 10^6/uL (4.00-5.40); WHITE BLOOD COUNT 10.3 10^3/uL (4.0-10.0)
[2019-09-06 11:50] LABS: BLOOD UREA NITROGEN 9 MG/DL (7-18); CALCIUM LEVEL 8.7 MG/DL (8.5-10.1); CARBON DIOXIDE LEVEL 23 MEQ/L (21-32); CHLORIDE LEVEL 105 MEQ/L (98-107); CREATININE FOR GFR 0.76 MG/DL (0.55-1.30); GLOMERULAR FILTRATION RATE > 60.0 (>60); GLUCOSE, FASTING 95 MG/DL (70-100); SODIUM LEVEL 136 MEQ/L (136-145)
[2019-09-06 11:53] LABS: ALBUMIN 3.7 GM/DL (3.2-5.2); BILIRUBIN,DIRECT 0.1 MG/DL (0.0-0.2); BILIRUBIN,TOTAL 0.3 MG/DL (0.2-1.0); TOTAL PROTEIN 7.5 GM/DL (6.4-8.2)
[2019-09-06] MEDS ORDERED: ONDANSETRON 4 MG ORAL DISINTEGRATING TAB (Q0162 PER 1MG) PO ONE (12:15)
[2019-09-06 13:58] VITALS: BP 119/69
[2019-09-06] MEDS ORDERED: ZOFR4TAB16 PO (14:12)
[2019-09-06] MEDS ORDERED: MACR100C43 PO (14:12)
== END 2019-09-06 14:19 | disposition home or self-care (01) ==
LOC: M ED 10:28
DX: O21.9 Vomiting of pregnancy, unspecified (principal); O23.41 Unspecified infection of urinary tract in pregnancy, first trimester; O20.8 Other hemorrhage in early pregnancy; Z79.2 Long term (current) use of antibiotics; Z88.2 Allergy status to sulfonamides
CPT/HCPCS: 80048; 80076; 81001; 83690; 84702; 85025; 87088; 87186; 99283; Q0162

== ENCOUNTER 2019-12-07 21:36 | Outpatient (CLI) | payer OTHER ==
[~2019-12-07] VITALS: Ht 162.6 cm; Wt 58.6 kg
[~2019-12-07 21:36] MED LIST changes: +ZOFR4TAB16 PO
[2019-12-07 21:59] VITALS: BP 138/75
--- NOTE | 2019-12-07 22:28 | IPNPDOC ---
Text Note Date of Service The patient was seen on 12/07/19. NOTE Triage Note Pt is a 24yo with SIUP at 20w2d presenting for DFM. Has not felt movement since 399 today. Had normal anatomy scan on Monday 12/04. No vaginal bleeding, no ctx, no LOF. No other complaints. Tried eating/drinking, but no distinct movements since 399. Vitals wnl, afebrile General: WDWN, resting comfortably in bed Abdomen: soft, gravid, NTTP Extremities: no edema BLE TAUS bedside performed by me: SIUP with +FCA (143bpm), active movement, anterior placenta, visually adequate fluid Confirmed with patient that she felt the large movements seen on TAUS Discharge home with reassurance provided Follow up at next routine OB visit in clinic at 24wk Continue good hydration Return precautions provided Dr. Komal Valle MD VS,Ari, I+O VS, Ari, I+O Vital Signs Date Time Temp Pulse Resp B/P (MAP) Pulse Ox O2 Delivery O2 Flow Rate FiO2 12/07/19 21:59 98.1 75 18 138/75 (96) 100 Room Air Komal Valle MD December 07, 2019 22:28
== END 2019-12-07 22:20 | disposition home or self-care (01) ==
LOC: M LDO 21:36
PROVIDERS: ATTEND Obstetrics & Gynecology
DX: O36.8120 Decreased fetal movements, second trimester, not applicable or unspecified (principal); Z3A.20 20 weeks gestation of pregnancy
CPT/HCPCS: 76815; G0378; G0463

== ENCOUNTER 2020-01-06 13:47 | Outpatient (CLI) | payer OTHER ==
[~2020-01-06] VITALS: Ht 162.6 cm; Wt 61.5 kg
[2020-01-06 14:03] VITALS: BP 110/78
[2020-01-06 15:00] LABS: AMORPHOUS SEDIMENT MODERATE (NEGATIVE); APPEARANCE, URINE CLOUDY (CLEAR); BACTERIA, URINE AUTO 3+ (NEGATIVE); BILIRUBIN, URINE AUTO NEGATIVE (NEGATIVE); BLOOD, URINE BLOOD NEGATIVE (NEGATIVE); COLOR, URINE YELLOW (YELLOW); GLUCOSE, URINE (UA) AUTO NEGATIVE (NEGATIVE); KETONE, URINE AUTO NEGATIVE (NEGATIVE); LEUKOCYTE ESTERASE, URINE AUTO 3+ (NEGATIVE); MUCUS, URINE SMALL (NEGATIVE); NITRITE, URINE AUTO NEGATIVE (NEGATIVE); PROTEIN, URINE AUTO NEGATIVE (NEGATIVE); RBC, URINE AUTO 36 /HPF (0-3); SPECIFIC GRAVITY URINE AUTO 1.008 (1.002-1.035); SQUAMOUS EPITHELIAL CELL UR AU 3 /HPF (0-6); UROBILINOGEN, URINE AUTO 0.2 mg/dL (0.0-2.0); WBC, URINE AUTO 23 /HPF (0-3)
--- NOTE | 2020-01-06 16:40 | REP ---
OB ULTRASOUND: Real-time sonographic evaluation of gravid uterus performed utilizing transabdominal and endovaginal technique. There is a single living intrauterine gestation, estimated gestational age 24 weeks 4 days, EDC 04/23/2020. Today's measurements indicate appropriate growth. BPD 60 mm = 24 weeks 4 days, 49th percentile HC 221 mm = 24 weeks 1 day, 39th percentile AC 184 mm = 23 weeks 1 day, 19th percentile Femur length 45 mm = 24 weeks 5 days, 53rd percentile HC/AC ratio 1.20 within normal range 1.02-1.21. Estimated weight 642 grams, 25th percentile. Cervix is closed and measures 3.8 cm in length. heart rate 153 beats per minute. Amniotic fluid within normal limits, BRANT 12.3, normal range 9.7 - 22.0. S/D ratio 3.76, normal range 2.72 - 4.04. RI 0.73 within normal range 0.59 - 0.75. SEEN/GROSSLY UNREMARKABLE Lateral ventricles Yes Posterior fossa Yes Upper lip No Four-chamber heart Yes LVOT Yes RVOT Yes Stomach Yes Cord insertion Yes Three vessel cord Yes Kidneys Yes Bladder Yes Spine No position: Vertex. Placenta: Posterior and grade 0 with no previa or abruption. Electronically Signed by Buzz Munoz MD 01/08/2020 12:54 A
--- NOTE | 2020-01-06 18:09 | IPNPDOC ---
Text Note Date of Service The patient was seen on 01/06/20. NOTE [facility] L[facility] Triage Note S: [place] is a 24yo at 24+4wks who presents to triage with c/o regular contractions that started last night. She states she hydrated and rested yesterday and contractions resolved. Then today they resumed. She reports +FM, denies LOF/VB. She denies dysuria or abnormal vaginal discharge. She also denies recent intercourse. She states she drinks adequate fluid (but upon discharge she admits to not drinking enough water d/t nausea). Her is complicated by history of previous PTL (inpatient at [facility] x1 week, labor stopped, then delivered at 36+3wks - IUGR infant). O: VSS, afebrile, normotensive FHR 145, moderate variability with accelerations appropriate for gestational age, no decels noted CTX by TOCO: occassional, pt denies feeling, some uterine irritability that resolves with hydration SSE: Cervix appears closed, copius yeast adhered to vaginal ortiz Labs collected: GC/CT (Pending), NALINI/WP (POS for yeast); could not collect FFN d/t TVUS prior to my exam; GBS (pending), UA (POS for WBS and Leuks)/UC (pending) VE: L/C/H Rad: CVX measured to 3.8cm and closed A: 24yo at 24+4wks, not in labor, + yeast and possible UTI and dehydration. US was reassuring. Category I FHT/Reactive. P: Discharge pt home with strict PTL precautions. Treat yeast with 1x dose of fluconazole Treat UTI with Macrobid (BID x10 days) Meds can be picked up at [facility] better hydration (1 gal/day) Will notify pt if any other labs are abnormal and treat appropriately. Vital Signs Date Time Temp Pulse Resp B/P (MAP) Pulse Ox O2 Delivery O2 Flow Rate FiO2 01/06/20 14:11 16 01/06/20 14:03 98.0 79 18 110/78 (89) Laboratory Tests 01/06/20 14:43: Urine Color YELLOW, Urine Appearance CLOUDYH, Urine pH 7.0, Urine Specific [place] 1.008, Urine Protein NEGATIVE, Urine Glucose (Auto)(UA) NEGATIVE, Urine Ketones (Auto) NEGATIVE, Urine Blood NEGATIVE, Urine Nitrite NEGATIVE, Urine Bilirubin NEGATIVE, Urine Urobilinogen 0.2, Urine Leukocyte Esterase (Auto) 3+H, Urine WBC (Auto) 23H, Urine RBC (Auto) 36H, Urine Hyaline Casts (Auto) 0, Urine Bacteria (Auto) 3+H, Urine Squamous Epithelial Cells 3, Urine Amorphous Sediment (Auto) MODERATEH, Urine Mucus (Auto) SMALL, Urine Sperm (Auto) , Chlamydia trach omatis DNA (MARAL) [Pending], Neisseria gonorrhoeae DNA (MARAL) [Pending] Microbiology 01/06/20 Wet Prep - Final, Complete VS,Fishbone, I+O VS, Fishbone, I+O Vital Signs Date Time Temp Pulse Resp B/P (MAP) Pulse Ox O2 Delivery O2 Flow Rate FiO2 01/06/20 14:11 16 01/06/20 14:03 98.0 79 110/78 (89) NICK YOUNGBLOOD Jan 06, 2020 18:09
[2020-01-06 18:12] LABS: CHLAMYDIA DNA AMPLIFICATION NEGATIVE (NEGATIVE); GC DNA AMPLIFICATION NEGATIVE (NEGATIVE)
== END 2020-01-06 17:32 | disposition home or self-care (01) ==
LOC: M LDO 13:47
PROVIDERS: ATTEND Registered Nurse Maternal Newborn
DX: O26.892 Other specified pregnancy related conditions, second trimester (principal); Z3A.24 24 weeks gestation of pregnancy
CPT/HCPCS: 76811; 76817; 81001; 87081; 87088; 87186; 87210; 87491; 87591; G0378; G0463

== ENCOUNTER 2020-01-22 17:04 | Outpatient (CLI) | payer OTHER ==
[~2020-01-22] VITALS: Ht 162.6 cm; Wt 62.9 kg
[2020-01-22 17:31] VITALS: BP 119/74
[2020-01-22] MEDS ORDERED: ONDANSETRON 4MG/2ML VIAL IV ONE (17:45)
[2020-01-22] MEDS ORDERED: LR 1,000 ML IV ONE (17:45)
--- NOTE | 2020-01-22 19:26 | IPNPDOC ---
Text Note Date of Service The patient was seen on 01/22/20. NOTE Patient is a 24 yo @23+6wks gestation presents with concern for n/v and loose stools for the last 2 days. 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 denies cramping/vb. denies fever. has been complicated by severe n/v before. She has been trying reglan and that has not been helping. vitals: normal NAD, laying in bed abd: gravid, soft, nt le: no edema/erythema/tenderness fht: 140/mod jeni/no accel/no decel toco: quiet IV hydration. IV zofran po challenge a/p Patient felt improved after she was IV hydrated and IV zofran. She was able to keep crackers and fluids po down without problem. Patient given return precautions. f/u with ob clinic as previously scheduled. DO Meghana VS,Asmitae, I+O VS, Fishbone, I+O Vital Signs Date Time Temp Pulse Resp B/P (MAP) Pulse Ox O2 Delivery O2 Flow Rate FiO2 01/22/20 17:31 98.2 80 119/74 (89) XUAN MARINO DO Jan 22, 2020 17:51
== END 2020-01-22 19:40 | disposition home or self-care (01) ==
LOC: M LDO 17:04
PROVIDERS: ATTEND Registered Nurse Maternal Newborn
DX: O21.9 Vomiting of pregnancy, unspecified (principal); Z20.828 Contact with and (suspected) exposure to other viral communicable diseases; Z3A.23 23 weeks gestation of pregnancy; Z88.2 Allergy status to sulfonamides
CPT/HCPCS: 59025; 96361; 96374; G0378; G0463; J2405

== ENCOUNTER 2020-03-24 17:38 | Outpatient (CLI) | payer OTHER ==
[~2020-03-24] VITALS: Ht 162.6 cm; Wt 66.4 kg
--- NOTE | 2020-03-24 18:53 | IPNPDOC ---
Text Note Date of Service The patient was seen on 03/24/20. NOTE S: States no FM all day,only hiccups. No ctx or VB. No headaches or visual changes. No LOF. O: VSS WNL ABD NT, gravid SVE def LE no edema, NT FHT: cat 1, 120s, reactive, no decels, no ctx A/P: 25yo 35wks . Fetus reassuring. Patient now feels good movement and reassured. Given PTL and PPROM precautions and d/w patient kick counts. D/c home with f/u appt on 03/26/2020. Mary Hoang MD Mar 24, 2020 18:53
== END 2020-03-24 18:41 | disposition home or self-care (01) ==
LOC: M LDO 17:38
PROVIDERS: ATTEND Obstetrics & Gynecology
DX: O36.8130 Decreased fetal movements, third trimester, not applicable or unspecified (principal); Z3A.35 35 weeks gestation of pregnancy
CPT/HCPCS: 59025; G0378; G0463

== ENCOUNTER → 2020-03-29 | Outpatient (CLI) | payer OTHER ==
[~2020-03-29] MED LIST changes: +MONI4CRE3 PV
--- NOTE | 2020-04-23 15:36 | REP ---
FOLLOW-UP OBSTETRICAL ULTRASOUND CLINICAL: Growth evaluation. COMPARISON: 01/06/2020. TECHNIQUE: Transabdominal obstetrical ultrasound with color Doppler evaluation. FINDINGS: Ultrasound examination demonstrates single live intrauterine in cephalic presentation. motion was identified by the technologist. Placenta noted posteriorly and grade 1 without evidence for placenta previa or abruption. Amniotic fluid volume is normal. BRANT equals 12.2 cm. FHR 139 beats per minute. MEASUREMENTS BPD 83 mm 33 weeks 4 days HC 306 mm 34 weeks 0 days AC 298 mm 33 weeks 6 days FL 67 mm 34 weeks 3 days HL 57 mm 33 weeks 1 day Gestational age by current measurements 33 weeks 5 days with estimated date of delivery 05/12/2020. Estimated weight 2320 grams (10-25th percentile). IMPRESSION: Single live intrauterine in cephalic presentation. Estimated weight within normal range. MTDD
== END ==
LOC: M RAD 15:47
PROVIDERS: ATTEND Nurse Practitioner Women's Health
DX: O26.843 Uterine size-date discrepancy, third trimester (principal); Z3A.33 33 weeks gestation of pregnancy

== ENCOUNTER 2020-03-31 08:58 | Outpatient (CLI) | payer OTHER ==
[~2020-03-31] VITALS: Ht 162.6 cm; Wt 66.6 kg
[~2020-03-31 08:58] MED LIST changes: -MONI4CRE3 PV
[2020-03-31 09:14] VITALS: BP 113/76
[2020-03-31] MEDS ORDERED: MONI4CRE3 PV (09:18)
[2020-03-31 10:43] VITALS: BP 116/74
[2020-03-31 12:03] VITALS: BP 118/77
--- NOTE | 2020-03-31 12:53 | HPEPDOC ---
Obstetrical History & Physical General Date of Admission 03/31/2020 History of Present Illness at 36w5d with JIA 04/23/2020 presents to L&d for contractions since last night. Denies leaking of fluids, vaginal bleeding, and reports positive movement. Chief Complaint: Contractions, pre-term Information Provided By: Patient Age: 24 : 2 Term: 0 Pre-term: 1 Abortions: 0 Livin Care Care: Good Care Number of Visits: 8 Dating Final EDC: Apr 23, 2020 Final EDC for Daily Update: Apr 23, 2020 Final EDC by: LMP, 1st trimester (US) LMP: Jul 18, 2019 1st Trimester Date: Sep 01, 2019 Weeks + Days: 6.3 EGA at Admission: 36 (+5) Antepartum Course Diagnos(e)s Hx of delivery at 36w3d, Asthma, Hx of IUGR Height (inches): 64 Pre- weight (lbs.): 125 Admission Weight (lbs.): 146 Change in Weight (lbs.): 21 Past Medical History Past Obstetrical History : Past Obstetrical History: Multigravida Date of Delivery: Jul 30, 2018 Gestation: 36 (+3) Type of Delivery: Spontaneous Vaginal Del. Sex of : Male Weight of (grams): 1950 Complications: Yes (IUGR, delivery) [employer] History: No pertinent history Past Medical History Medical History Asthma, insomnia Social History Marital Status: Family situation: Spouse/partner home Psychosocial History: No pertinent psych hx * Smoker: non-smoker Alcohol: Denies Drugs: denies Abuse Violence Screening Have you been hit/kicked/slapp: No Have you been sexually assault: No Imunizations Tdap status: declined Influenza Status: declined Allergies Coded Allergies: Sulfa (Sulfonamide Antibiotics) (Verified Allergy, Intermediate, hives, 03/31/20) Medications Scheduled Miconazole Nitrate (Monistat 7) 45 Gm Cream.appl, 1 APLCTR PV QPM Miscellaneous Medications Pnv,Calcium 72/Iron/Folic Acid ( Vitamin Plus Low Iron) 1 Each Tablet Physical Examination Physical Examination GENERAL: Alert and oriented times three. BREAST: . ABDOMEN: Gravid and non-tender to touch. FETUS: Is vertex (VTX) by sterile vaginal examination (SVE), fetus is vertex (VTX) by [place]. HEART RATE: Regular rate and rhythm. LUNGS: Clear to auscultation (CTA). EXTREMITIES: No edema. No clonus. Deep tendon reflexes (DTRs) + . Vital Signs/I&O Vital Signs Date Time Temp Pulse Resp B/P (MAP) Pulse Ox O2 Delivery O2 Flow Rate FiO2 03/31/20 09:14 96.7 81 18 113/76 (88) Pertinent Laboratoy Data Blood Type: A+ RBC Antibody Screen: Negative HIV: Negative Hepatitis B: Negative Rapid Plasma Reagin: Nonreactive Rubella: Immune Varicella: Nonreactive Chlamydia/Gonorrhea: Negative Group B Streptococcus: Negative Quad Screen Test: Negative Cystic Fibrosis: Negative Vaginal Examination Dilation: 3 cm Effacement: 50% Station: -3 Cervical Consistency: Soft Cervical Position: Posterior Presentation: Cephalic presentation Position: Vertex (occiput) Assessment Heart Rate (FHR): 135 Variability: Moderate Accelerations: Present Decelerations: None Tocometer Frequency: irregular, greater than 10 min/apart Multi-drug resistant Organism: No history of MDRO Assessment/Plan Assessment at 36w5d with JIA 04/23/2020 presents to L&d for contractions since last night. Denies leaking of fluids, vaginal bleeding, and reports positive movement. She was 3/50/-3 when she presented and cervical exam was unchanged after 2 hours. Plan Discharge to home, certified not in labor Schedule appointment to be seen at [facility] in 1 week labor instructions discussed with the patient ALISSA MERRITT CNM Mar 31, 2020 09:46
== END 2020-03-31 12:10 | disposition home or self-care (01) ==
LOC: M LDO 08:58
PROVIDERS: ATTEND Registered Nurse Maternal Newborn
DX: O60.03 Preterm labor without delivery, third trimester (principal); Z88.2 Allergy status to sulfonamides; Z3A.36 36 weeks gestation of pregnancy
CPT/HCPCS: 59025; G0378; G0463

== ENCOUNTER 2020-04-01 03:48 | Inpatient (IN) | payer OTHER ==
[2020-04-01] VITALS (24 sets, daily range): BP systolic 102–137; BP diastolic 63–94
[~2020-04-01] VITALS: Ht 162.6 cm; Wt 66.9 kg
[~2020-04-01 03:48] MED LIST changes: +MONI4CRE3 PV
[2020-04-01] MEDS ORDERED: LACTATED RINGER'S 1000 ML IV STA (04:34)
[2020-04-01] MEDS ORDERED: LR 1,000 ML IV SCH (04:34)
[2020-04-01 05:47] LABS: HEMATOCRIT 35.1 % (36.0-47.0); HEMOGLOBIN 11.1 g/dl (12.0-15.5); MEAN CORPUSCULAR HEMOGLOBIN 25.5 pg (27.0-33.0); MEAN CORPUSCULAR HGB CONC 31.6 g/dl (32.0-36.5); MEAN CORPUSCULAR VOLUME 80.7 fl (80.0-96.0); PLATELET COUNT, AUTOMATED 263 10^3/uL (150-450); RED BLOOD COUNT 4.35 10^6/uL (4.00-5.40); WHITE BLOOD COUNT 11.5 10^3/uL (4.0-10.0)
[2020-04-01] MEDS ORDERED: FENTANYL 2MCG/ML ROPIVACAINE 0.2% IN 0.9% NACL 100ML IVBAG As Ordered ONE (05:48)
[2020-04-01] MEDS ORDERED: diphenhydrAMINE 50MG/ML VIAL (J1200) IV PRN (07:30)
[2020-04-01] MEDS ORDERED: ONDANSETRON 4MG/2ML VIAL IV PRN (07:30)
[2020-04-01] MEDS ORDERED: LACTATED RINGER'S 1000 ML IV PRN (07:30)
[2020-04-01] MEDS ORDERED: NALOXONE INJ 0.4MG/1ML VIAL (J2310 PER 1MG) IV PRN (07:30)
[2020-04-01] MEDS ORDERED: ePHEDrine SULFATE 25 MG/5 ML(5MG/ML) SYRINGE IV PRN (07:30)
[2020-04-01] MEDS ORDERED: EPIDURAL/PCA KEYS XX PRN (07:30)
[2020-04-01] MEDS ORDERED: REFRIGERATOR IV KEYS XX PRN (07:30)
[2020-04-01] MEDS ORDERED: FENTANYL/ROPIVACAINE/NACL BAG 100 ML EPIDURAL SCH (07:30)
[2020-04-01] MEDS ORDERED: EPIDURAL COMMENT XX SCH (07:30)
[2020-04-01] MEDS ORDERED: OXYTOCIN 30 UNITS IN 0.9% NaCl 500ML IV BAG (J2590) As Ordered ONE (08:06)
--- NOTE | 2020-04-01 08:25 | IPNPDOC ---
Obstetrical Progress Note Date of Service Apr 01, 2020 Subjective 25 y/o at 36w6d is comfortable with her epidural. She has supportive family at the bedside. Discussed options for AROM versus continuing expectant management. Patient decided for AROM. Objective Vital Signs Date Time Temp Pulse Resp B/P (MAP) Pulse Ox O2 Delivery O2 Flow Rate FiO2 04/01/20 07:32 70 20 105/71 (82) 04/01/20 07:17 98.3 100 Room Air AROM for clear fluid Assessment Heart Rate (FHR): 125 Variability: Moderate Accelerations: Present Decelerations: None Heart Rate Tracing: Category I Tocometer Contractions: Yes Frequency: every 2-5 min. Sterile Vaginal Examination Dilation: 7 cm Effacement (%): 90% Station: -1, 0 Postion/Presentation: Cephalic presentation Assessment and Plan Age: 25 : 2 Term: 0 Pre-term: 1 Abortions: 0 Livin EGA at Admission: 36 (+6) Weeks & Days 36w6d Status: Reassuring Group B Streptococcus: Negative Anticipate: Vaginal Delivery ALISSA MERRITT CNM Apr 01, 2020 07:58
--- NOTE | 2020-04-01 08:42 | DNPDOC ---
[facility] Delivery Note Delivery Note DATE OF DELIVERY: [04/01/2020] PREDELIVERY DIAGNOSIS: [36]-[6]/7 weeks' gestation and labor. POST DELIVERY DIAGNOSIS: Delivered. PROCEDURE: [Spontaneous vaginal delivery]. E [employer] DEVELOPER: [Farzaneh Razo CNM, WHNP-BC, STAMP CLERK] ANESTHESIA: [Epidural]. ESTIMATED BLOOD LOSS: [150] mL. FINDINGS: [4] pound [4] ounce live [female] infant, Score [8]/[9]. DELIVERY SUMMARY: Patient is a [25]-year-old [2] now para [0]-[2]-[0]-[2] who was admitted to labor and delivery for [active labor]. the patient was 5 cm dilated and admitted to L&D. Labor progressed without pitocin and membranes were ruptured artificially for clear fluid. The patient progressed to fully dilated and entered the second stage of labor at which point she began to push over an intact perineum. The head was then delivered. A nuchal cord was not noted. The rest of the infant delivered. The infant was placed on maternal abdomen and the cord was doubly clamped and cut. Cord blood was not collected and a 3-vessel cord was noted. Placenta was delivered spontaneously and intact. Manual exploration of the uterus was not performed. Uterine tone was firm. Bleeding was well controlled. Perineum, vagina, and cervix were inspected and no laceration was found. Cervical exam was normal. Rectal exam was not indicated. Sponge, instrument, and needle counts were correct. Patient tolerated the procedure well and is stable in recovery. FARZANEH RAZO CNM Apr 01, 2020 08:42
[2020-04-01] MEDS ORDERED: ACETAMINOPHEN 500 MG TAB PO PRN (09:00)
[2020-04-01] MEDS ORDERED: ANUSOL HC CREAM 30GM TOP PRN (09:00)
[2020-04-01] MEDS ORDERED: ACETAMINOPHEN TAB 650MG DOSE (2X325MG) PO PRN (09:00)
[2020-04-01] MEDS ORDERED: DIBUCAINE 1% OINTMENT 30GM TOP PRN (09:00)
[2020-04-01] MEDS ORDERED: DOCUSATE SODIUM 100 MG CAP PO PRN (09:00)
[2020-04-01] MEDS: PRENATAL VITAMINS CHEWABLE TABLET PO SCH (09:00)
[2020-04-01] MEDS ORDERED: OXYTOCIN DRIP 30 UNITS in IV 1 EA IV SCH (09:00)
[2020-04-01] MEDS ORDERED: IBUPROFEN 800 MG TAB PO PRN (09:00)
[2020-04-01] MEDS ORDERED: METHYLERGONOVINE MALEATE 0.2 MG TAB PO PRN (09:00)
[2020-04-02 06:00] VITALS: BP 130/83
--- NOTE | 2020-04-02 07:05 | IPNPDOC ---
Progress Note Date of Service: Apr 02, 2020 Day#: 1 Progress Note SUBJECT: Ms. Enriquez is a 25-year-old now Para 0202 status post uncomp licated spontaneous vaginal delivery at 36+6 (for labor) weeks, doing well day # 1. She has been ambulating, voiding spontaneously without issue and tolerating regular diet. Breast feeding without issue. Reports lochia is like a normal period. Patient is ambulating well. Denies any pain. Voiding and stooling without difficulty. OBJECTIVE: VITAL SIGNS: Within normal limits, afebrile. Alert and oriented times three. Breath sounds clear to auscultation. Heart rate: Regular rate and rhythm, no murmurs, rubs or gallops. Abdomen: Fundus firm at U-2. Soft, NTTP. [Minimal] lochia. ASSESSMENT: Ms. Enriquez is a 25-year-old now Para 0202 status post uncomplicated spontaneous vaginal delivery at 36+6 (for labor) weeks, doing well day # 1. Vitals within normal limits, afebrile, hemodynamically stable with no evidence of infection. PLAN: 1. Discharge to home today. 2. Tylenol and Motrin for pain. 3. Encourage breast feeding and ambulation. 4. desires BTL, plans for abstinence in the interm as her is only in town temporarily, will schedule with myself in 6 weeks 5. Routine PP visit in 6 weeks in clinic. 6. Discussed return precautions at length. Homar VS, I&O, 24H, Fishbone Vital Signs/I&O Vital Signs Date Time Temp Pulse Resp B/P (MAP) Pulse Ox O2 Delivery O2 Flow Rate FiO2 04/02/20 06:00 96.7 79 18 130/83 (99) 04/01/20 12:00 99 Room Air I&O- Last 24 Hours up to 6 AM 04/02/20 06:00 Intake Total 1958 ml Output Total 975 ml Balance 983 ml KRYSTIAN ROMERO DO Apr 02, 2020 07:05
--- NOTE | 2020-04-02 08:17 | HPE ---
DATE OF SERVICE: 04/01/2020. HISTORY OF PRESENT ILLNESS: This lady is a 25-year-old, 2, para 1, LMP 07/18/2019, EDC is 04/23/2020. She is at 36 and 6/7 weeks of gestation with a history of contractions. She was here previously, was 3 cm and was sent home. She comes back in active labor at 36 and 6/7 weeks of gestation with a history of contractions 5-6 minutes apart with bulging membranes. PAST OB HISTORY: Past history 07/30/2018 at 36 and 3/7 weeks had a spontaneous vaginal delivery 4 pounds 3 ounces, labor, delivery of a male with clearly SGA or IUGR. Doppler flows were normal. LABORATORY DATA: A+, HIV negative, Hep negative, RPR negative, Varicella nonimmune, Pap normal. Urine with E. coli; not treated. GBS was negative. Did not do her glucose test. PHYSICAL EXAMINATION: Temperature 98.0, pulse 78, respirations 16 and blood pressure 127/89. Urine 1010, pH 7, +1 leuks and 250 blood. She is actively in labor at 36 and 6/7 weeks of gestation, category 1 strip, 5-6 cm, bulging membranes, requesting an epidural. Normocephalic, atraumatic. Neck full range of motions. Pupils equal and reactive to light. Distal pulses are symmetric. No evidence of DVT, PE or superficial phlebitis. Chest is clear bilaterally to bases, no wheezes or rhonchi. No CVA tenderness. Abdomen is soft, four quadrant bowel sounds are noted. Appropriate symphysis fundus height. She has no rashes or lesions or pruritis. No arthralgias or myalgias. No complaint of joint pain. No complaint of cough, wheeze, shortness of breath or dyspnea on exertion. No nausea, vomiting, diarrhea or constipation. No incontinence, urgency or frequency. No heat or cold or diabetic issues as we know. She has no abnormal Pap smears. No STDs. PAST MEDICAL AND SURGICAL HISTORY: Unremarkable. FAMILY HISTORY: Noncontributory. SOCIAL HISTORY: She does not smoke, drink, abuse drugs. She is . No domestic violence. Consent for vaginal delivery was discussed, which is a delivery through the vagina, possible assistance of forceps or vacuum, these are devices needed for maternal or indications. Forceps or vacuum are devices that can assist with vaginal delivery when normal pushing efforts cannot achieve delivery on their own or when delivery is needed in an emergency for babys wellbeing. Medication used to augment or induce labor in order to achieve a vaginal delivery may be required and an episiotomy maybe required in order to delivery the baby when pushing efforts are not adequate. There may also be risks of repair of lacerations or tears of the vagina or vulva that are associated with delivery. In some cases, emergencies arise that require emergency section. Discussed that with your provider and are only done for medical reasons where the wellbeing of the baby is safer to deliver by abdomen than continuing on in labor. Other risks of vaginal delivery are not limited to bleeding, infection, injury to the vagina, pelvic structures, injury to baby, damage to the uterus, reaction to anesthesia, uterine rupture, risk of hysterectomy and life threatening bleeding situations. Medication used to augment labor may cause increased risk for section. Uterine tachysystole, infection, intrauterine bleeding, heart rate abnormality, need for emergency delivery by section. Risks of hysterectomy with uncontrolled bleeding or . Risks of forceps or vacuum can include scratches, hematomas to the head or intracranial bleed. Patient expressed understanding of this 20 minute discussion. We await anesthesia for her epidural. Anticipate a vaginal delivery. SARAY
[2020-04-02 08:39] LABS: HEMATOCRIT 33.7 % (36.0-47.0); HEMOGLOBIN 10.6 g/dl (12.0-15.5); MEAN CORPUSCULAR HGB CONC 31.5 g/dl (32.0-36.5); MEAN CORPUSCULAR VOLUME 82.6 fl (80.0-96.0); PLATELET COUNT, AUTOMATED 231 10^3/uL (150-450); RED BLOOD COUNT 4.08 10^6/uL (4.00-5.40); WHITE BLOOD COUNT 13.8 10^3/uL (4.0-10.0)
[2020-04-02] MEDS: PRENATAL VITAMINS CHEWABLE TABLET PO SCH (09:35)
== END 2020-04-02 10:15 | disposition home or self-care (01) | DRG 807 ==
LOC: M LDO 03:48 → M LDI 05:32 → M OBS 10:59
PROVIDERS: ADMIT Obstetrics & Gynecology; ATTEND Obstetrics & Gynecology
PROC: 10E0XZZ Delivery of Products of Conception, External Approach (ICD-10-PCS; principal; 2020-04-01)
DX: O60.14X0 Preterm labor third trimester with preterm delivery third trimester, not applicable or unspecified (principal); Z37.0 Single live birth; Z3A.36 36 weeks gestation of pregnancy

== ENCOUNTER → 2022-01-24 | Outpatient (REF) | payer OTHER ==
[~2022-01-24] MED LIST changes: +ALBU2.5V10 INH; -ALBU83IN INH
== END ==
LOC: M WUC 19:08
PROVIDERS: ATTEND Student in an Organized Health Care Education/Training Program
DX: R30.0 Dysuria (principal)

== ENCOUNTER → 2023-02-22 | Outpatient (CLI) | payer OTHER | LOC: M PLARAD 15:20 | PROVIDERS: ATTEND Family Medicine | DX: M71.20 Synovial cyst of popliteal space [Baker], unspecified knee (principal) ==